=== PATIENT | male | born 1985 | race Caucasian/White ===

== ENCOUNTER 2019-04-30 19:21 | Emergency (ER) | payer BC, OTHER ==
[2019-04-30 19:35] VITALS: BP 164/99; PULSE 132; TEMP 102.3; BMI 34.4
[2019-04-30] MEDS ORDERED: ACETAMINOPHEN 500 MG TABLET (FP) PO ONE (20:13)
--- NOTE | 2019-04-30 20:13 | PDOC ---
Rapid Medical Evaluation Chief Complaint: Cold Symptoms Time Seen by Provider: 04/30/19 20:13 Medical Evaluation: Allergies Allergy/AdvReac Type Severity Reaction Status Date / Time No Known Allergies Allergy Verified 04/30/19 19:32 Vital Signs Temp Pulse Resp BP Pulse Ox 102.3 F H 132 H 20 164/99 99 04/30/19 19:32 04/30/19 19:32 04/30/19 19:32 04/30/19 19:32 04/30/19 19:32 04/30/19 21:00 I have performed a brief in-person evaluation of this patient. The patient presents with a chief complaint of:flu symptoms Pertinent physical exam findings:stable and in NAD, non-focal I have ordered the following: tylenol The patient will proceed to the ED for further evaluation. Discharge Disposition - Referrals Referrals: Remi Akers MD [Primary Care Provider] - - Patient Instructions - Post Discharge Activity
[2019-04-30] MEDS ORDERED: ACETAMINOPHEN 500 MG TABLET (FP) ONE (20:14)
--- NOTE | 2019-04-30 21:01 | PDOC ---
*Physical Exam - Vital Signs Last Vital Signs Temp Pulse Resp BP Pulse Ox 102.3 F H 132 H 20 164/99 99 04/30/19 19:32 04/30/19 19:32 04/30/19 19:32 04/30/19 19:32 04/30/19 19:32 ED Treatment Course - LABORATORY CBC & Chemistry Diagram: 04/30/19 21:55 04/30/19 21:55 - Medications Given in the ED: ED Medications Discontinued Medications Generic Name Dose Route Start Last Admin Trade Name Alex PRN Reason Stop Dose Admin Acetaminophen 1,000 mg 04/30/19 20:13 04/30/19 20:16 Tylenol - PO 04/30/19 20:14 1,000 mg ONCE ONE Administration Medical Decision Making - Medical Decision Making 04/30/19 21:01 Patient seen by the advanced practice provider under my direct supervision. Ancillary testing reviewed as necessary. I agree with plan as outlined by the advanced practice provider. Discharge - Discharge Information Problems reviewed: Yes Clinical Impression/Diagnosis: Influenza A Condition: Fair Disposition: HOME - Additional Discharge Information Prescriptions: Oseltamivir Phosphate [Tamiflu -] 75 mg PO BID #10 capsule - Follow up/Referral Referrals: Remi Akers MD [Primary Care Provider] - - Patient Discharge Instructions Additional Instructions: Rest, drink lots of fluids: Teas, water, soups, Pedialyte Saltwater gargles Steamy showers/seem to face break up mucus Old-fashioned treatments help! Avoid contact with others until fevers and cough resolved as this is very contagious Lots of handwashing and good hygiene Continue [id number] medications for symptomatic relief Tylenol or Motrin for fever and pain Take all of Tamiflu as directed: 1 tab every 12 hours for 5 days Followup with private physician in one to 2 days as needed or if worsening Return to emergency department for worsened symptoms, fevers, dehydration Influenza takes between 5 and 7 days for resolution Do not participate in any activity, work, or school until fevers and cough are gone for at least one day - Post Discharge Activity Work/Back to School Note: Back to Work
[2019-04-30] MEDS ORDERED: SODIUM CHLORIDE 1,000 ML IV STA (21:24)
--- NOTE | 2019-04-30 21:43 | PDOC ---
History of Present Illness - General Chief Complaint: Cold Symptoms Stated Complaint: SHORTNESS OF BREATH Time Seen by Provider: 04/30/19 20:13 History Source: Patient Exam Limitations: No Limitations - History of Present Illness Initial Comments: 04/30/19 21:35 HISTORY OF PRESENT ILLNESS: 33-year-old male denies medical history presents emergency department for evaluation of 2 days of weakness, fatigue, chills, fevers, moist productive cough, anorexia, midsternal chest tightness. Patient reports he laid in bed all day yesterday and was unable to get out of bed due to the fatigue. Woke up this morning was noted to be sweating that is when he reported chills. Tried to get out of bed but lost his balance fell striking his head on the floor. Denied any loss of consciousness. Patient tried to eat some pancakes prior to coming to the emergency department but was uninterested in food. No recent travel or sick contacts. PAST MEDICAL HISTORY: Denies past medical history SURGICAL HISTORY: Denies ALLERGIES: No known drug allergies REVIEW OF SYSTEMS General/Constitutional: +fever. Denies weakness, weight change. HEENT: Denies change in vision. Denies ear pain or discharge. +sore throat. Cardiovascular: Denies chest pain or shortness of breath. Respiratory: Moist productive cough. Denies wheezing, or hemoptysis. Gastrointestinal: Denies nausea, vomiting, diarrhea or constipation. Denies rectal bleeding. Genitourinary: Denies dysuria, frequency, or change in urination. Musculoskeletal: +myalgias. Denies neck or back pain. Skin and breasts: Denies rash or easy bruising. Neurologic: Denies headache, vertigo, loss of consciousness, or loss of sensation. Psychiatric: Denies depression or anxiety. Endocrine: Denies increased thirst. Denies abnormal weight change. Hematologic/Lymphatic: Denies anemia, easy bleeding, or history of blood clots. Allergic/Immunologic: Denies hives or skin allergy. Denies latex allergy. PHYSICAL EXAM General Appearance: Well-appearing, appropriately dressed. No apparent distress , no intoxication. HEENT: EOMI, PERRLA, normal voice, TMs retracted bilaterally. No conjunctival pallor. No photophobia, scleral icterus. Oropharynx erythematous without lesions or exudate. Cobblestoning noted in the posterior. No nasal discharge present. Neck: Supple. Trachea midline. No tenderness, rigidity, carotid bruit, stridor , or thyromegaly. Nontender anterior cervical lymphadenopathy present. Respiratory/Chest: Lungs CTAB. No shortness of breath, chest tenderness, respiratory distress, accessory muscle use. No crackles, rales, rhonchi, stridor , wheezing, dullness Cardiovascular: RRR. S1, S2. No JVD, murmur, bradycardia, tachycardia. Vascular Pulses: Dorsalis-Pedis (R): 2+, Dorsalis-Pedis (L): 2+ Gastrointestinal/Abdominal: Normal bowel sounds. Abdomen soft, non-distended. No tenderness or rebound tenderness. No organomegaly, pulsatile mass, guarding, hernia, hepatomegaly, splenomegaly. Musculoskeletal/Extremities: Normal inspection. FROM of all extremities, normal capillary refill. Pelvis Stable. No CVA tenderness. No tenderness to extremities, pedal edema, swelling, erythema or deformity. Integumentary: Appropriate color, dry, warm. No cyanosis, erythema, jaundice or rash Neurologic: boom storage II-XII intact. Fully oriented, alert. Appropriate mood/affect. Motor strength 5/5. No appreciable EOM palsy, facial droop or sensory deficit. Past History - Past Medical History Allergies/Adverse Reactions: Allergies Allergy/AdvReac Type Severity Reaction Status Date / Time No Known Allergies Allergy Verified 04/30/19 19:32 Home Medications: Ambulatory Orders Oseltamivir Phosphate [Tamiflu -] 75 mg PO BID #10 capsule 04/30/19 COPD: No - Psycho Social/Smoking Cessation Hx Smoking History: Never smoked *Physical Exam - Vital Signs Last Vital Signs Temp Pulse Resp BP Pulse Ox 102.3 F H 132 H 20 164/99 99 04/30/19 19:32 04/30/19 19:32 04/30/19 19:32 04/30/19 19:32 04/30/19 19:32 ED Treatment Course - LABORATORY CBC & Chemistry Diagram: 04/30/19 21:55 04/30/19 21:55 - RADIOLOGY Radiology Studies Ordered: Category Date Time Status CHEST PA & LAT [RAD] Stat Radiology 04/30/19 21:24 Ordered - Medications Given in the ED: ED Medications Discontinued Medications Generic Name Dose Route Start Last Admin Trade Name Freq PRN Reason Stop Dose Admin Acetaminophen 1,000 mg 04/30/19 20:13 04/30/19 20:16 Tylenol - PO 04/30/19 20:14 1,000 mg ONCE ONE Administration Medical Decision Making - Medical Decision Making 04/30/19 21:43 A/P: 33-year-old male with 2 days of flulike symptoms with midsternal chest tightness Differential diagnosis includes but is not limited to-pneumonia, influenza, ACS , tuberculosis, hepatitis, pancreatitis Less likely hepatitis or pancreatitis as patient has benign abdominal exam. Chest x-ray Labs including cardiac profile and lipase Urinalysis Urine culture EKG Tylenol 1 g orally now Influenza testing Normal saline 1 L IV bolus Reassess 04/30/19 23:54 Chest x-ray as read by me: Angles sharp. Cardiac silhouette is within normal limits. Lung rangel clear without infiltrate or consolidation noted. EKG sinus rhythm with rate of 82. Normal intervals present. Normal axis. No ischemic changes present. Laboratory testing notable for positive influenza A. Discharge home with prescription for Tamiflu. I discussed the physical exam findings, ancillary test results and final diagnoses with the patient. I answered all of the patient's questions. The patient was satisfied with the care received and felt comfortable with the discharge plan and treatment plan. The patient will call their primary care physician within 24 hours to arrange follow-up and will return to the Emergency Department with any new, persistent or worsening symptoms. Discharge - Discharge Information Problems reviewed: Yes Clinical Impression/Diagnosis: Influenza A Condition: Fair Disposition: HOME - Admission No - Additional Discharge Information Prescriptions: Oseltamivir Phosphate [Tamiflu -] 75 mg PO BID #10 capsule - Follow up/Referral Referrals: Remi Akers MD [Primary Care Provider] - - Patient Discharge Instructions Additional Instructions: Rest, drink lots of fluids: Teas, water, soups, Pedialyte Saltwater gargles Steamy showers/seem to face break up mucus Old-fashioned treatments help! Avoid contact with others until fevers and cough resolved as this is very contagious Lots of handwashing and good hygiene Continue [id number] medications for symptomatic relief Tylenol or Motrin for fever and pain Take all of Tamiflu as directed: 1 tab every 12 hours for 5 days Followup with private physician in one to 2 days as needed or if worsening Return to emergency department for worsened symptoms, fevers, dehydration Influenza takes between 5 and 7 days for resolution Do not participate in any activity, work, or school until fevers and cough are gone for at least one day - Post Discharge Activity Work/Back to School Note: Back to Work
[2019-04-30 22:16] LABS: BASO % 0.4 % (0-2.0); EOS % 0.1 % (0-4.5); HEMATOCRIT 45.6 % (35.4-49); LYMPH % 9.4 % (8-40); MCH 29.7 pg (25.7-33.7); MEAN CELL VOLUME 84.8 fl (80-96); MEAN PLT VOLUME 8.5 fl (7.5-11.1); MONO % 10.8 % (3.8-10.2); NEUT % 79.3 % (42.8-82.8); PLATELET COUNT 306 K/MM3 (134-434); RBC 5.38 M/mm3 (4.00-5.60); WHITE BLOOD COUNT 10.1 K/mm3 (4.0-10.0)
[2019-04-30 22:44] LABS: ALBUMIN 4.3 g/dl (3.4-5.0); BILIRUBIN,TOTAL 0.8 mg/dL (0.2-1); BLOOD UREA NITROGEN 9.5 mg/dL (7-18); CALCIUM 9.5 mg/dL (8.5-10.1); CREATININE 0.9 mg/dL (0.55-1.3); TOT PROT 9.1 g/dl (6.4-8.2)
[2019-04-30 22:45] LABS: MAGNESIUM 2.3 mg/dL (1.8-2.4)
--- NOTE | 2019-05-01 12:36 | EKG ---
Test Reason : Blood Pressure : / mmHG Vent. Rate : 082 BPM Atrial Rate : 082 BPM P-R Int : 150 ms QRS Dur : 086 ms QT Int : 362 ms P-R-T Axes : 054 059 030 degrees QTc Int : 422 ms NORMAL SINUS RHYTHM NORMAL ECG Confirmed by MD BLOOM GREGORY ([id number]) on 05/01/2019 12:36:27 PM Referred By: Confirmed By:JARAD BLOOM MD
== END 2019-05-01 00:06 | disposition home or self-care (01) ==
LOC: JER 19:21
DX: J09.X2 Influenza due to identified novel influenza A virus with other respiratory manifestations (principal)
CPT/HCPCS: 36415; 71046-TC-FY; 80053; 82550; 82553; 83605; 83690; 83735; 84484; 85025; 87040; 87804; 93005; 93010; 99282-25; J7030